=== PATIENT | female | born 1980 | race Caucasian/White ===

== ENCOUNTER 2025-08-09 10:45 | Emergency (ER) | payer BC, SELFPAY ==
--- NOTE | 2025-08-09 10:47 | ECG_ITS ---
[facility] Test Date: 2025-08-09 Pat Name: Chapis Conway Department: Room: Gender: Female [employer]: : 1980 Requested By: Iron Mcclendon Order Number: [id number] Akers MD: Mustapha Barnard M.D. Measurements Intervals [place] Rate: 90 P: 43 NH: 122 QRS: 52 QRSD: 90 T: 9 QT: 368 QTc: 451 Interpretive Statements SINUS RHYTHM NONSPECIFIC ST & T-WAVE ABNORMALITY No previous ECG available for comparison Electronically Signed On 08-09-2025 14:08:52 INSTRUMENTS SALES REPRESENTATIVE by Mustapha Barnadr M.D. [id number]
--- NOTE | 2025-08-09 10:47 | XRR_ITS ---
PROCEDURE INFORMATION: Exam: XR Chest Exam date and time: 08/09/2025 11:05 AM Age: 44 years old Clinical indication: Pain; Chest pressure; Additional info: Cp TECHNIQUE: Imaging protocol: Radiologic exam of the chest. Views: 1 view. COMPARISON: No relevant prior studies available. FINDINGS: Lungs: 11 mm nodular density of the left lung base. No consolidation. Pleural spaces: Unremarkable. No gross pleural effusion. No pneumothorax. Heart/Mediastinum: Unremarkable. No cardiomegaly. Bones/joints: Unremarkable. XR/XR chest 1V portable [id number] IMPRESSION: 11 mm nodular density of the left lung base. Follow-up noncontrast CT chest is recommended.
[2025-08-09 10:59] VITALS: BP 124/63; PULSE 85; RESP 16; TEMP 36.6; O2SAT 100; BMI 31.8
--- NOTE | 2025-08-09 11:15 | W.ED.CHESTPA ---
HPI - Chest Pain General: Chief Complaint: Chest Pain Stated Complaint: chest tightness, tingling in L arm Time Seen by Provider: 08/09/25 11:04 Source: patient Mode of arrival: ambulatory Limitations: no limitations History of Present Illness: 44-year-old female with a history of Mariah's. States she started having some pressure type pain this morning at [facility] with some radiation down her left arm. States pain is currently a 1 out of 10 states its been minor. States she had started estrogen progesterone a little over a month ago has been having some intermittent chest pains. She denies any shortness of breath she denies any fever denies any worse improved factors Related Data Home Medications ?Medication ?Instructions ?Recorded ?Confirmed fluticasone propionate 50 1 spray intranasal DAILY PRN 05/15/23 08/09/25 mcg/actuation nasal allergies spray,suspension (Flonase Allergy Relief) Bi Est/Progest 0.3/40mg See Rx Instructions .Route .COMPLEX 08/09/25 08/09/25 levothyroxine 25 mcg tablet 25 mcg PO QAM 08/09/25 08/09/25 thyroid (pork) 60 mg tablet (Niva 60 mg PO DAILY 08/09/25 08/09/25 Thyroid) Allergies Allergy/AdvReac Type Severity Reaction Status Date / Time Sulfa (Sulfonamide Allergy Unknown ALGY-Rash Verified 08/09/25 11:04 Antibiotics) Review of Systems Card: Reports: chest pain [facility] ED PFSH: Medical History 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 Social History Smoking and tobacco/nicotine status: unknown if used tobacco/nicotine Physical Exam Const: COMMON NORMALS: no acute distress, patient oriented x3 and healthy appearing HENMT: COMMON NORMALS: normocephalic and atraumatic HEAD & SCALP: normocephalic and atraumatic Eye: COMMON NORMALS: Equal, round and reactive pupils present and EOMs intact bilaterally PUPIL: Yes Equal, round and reactive pupils present Neck/C-Spine: COMMON NORMALS: full ROM and supple Chest: COMMONS NORMALS: normal inspection of the chest and normal palpation of entire chest wall Resp: COMMON NORMALS: normal respiratory effort, No retractions, No use of accessory muscles and clear to auscultation bilaterally AUSCULTATION: clear to auscultation bilaterally Cardio: COMMON NORMALS: regular rate, regular rhythm and No murmurs present (Cardio) RATE: regular rate RHYTHM: regular rhythm GI: COMMON NORMALS: Normal to inspection, nondistended, normoactive bowel sounds present, Soft to palpation, non-tender and no masses PALPATION: Yes Soft to palpation Extremity: COMMON NORMALS: normal to inspection and full ROM Neuro: COMMON NORMALS: patient oriented x3, moves all extremities and no focal motor deficits Psych: COMMON NORMALS: mental status grossly normal, Normal thought process present and cooperative THOUGHT PROCESS: Normal thought process present Skin: COMMON NORMALS: no rashes or lesions noted and no wounds GENERAL SKIN EXAM: no rashes or lesions noted Course Vital Signs: Vital signs: Vital Signs Temperature 97.9 F 08/09/25 10:59 Pulse Rate 71 08/09/25 12:33 Respiratory Rate 18 08/09/25 12:33 Blood Pressure 126/78 08/09/25 12:33 Pulse Oximetry 97 08/09/25 12:33 Oxygen Delivery Me thod Room Air 08/09/25 12:33 MDM - Chest Pain Medical Decision Making Patient presents for chest pain. Differential includes aortic dissection, ACS, pulmonary emboli. Patient has no signs of pulmonary emboli chest x-ray here is normal no signs of dissection pain is atypical in nature has minimal risk factors heart score is 1. Her EKG was interpreted by me showed normal sinus rhythm heart rate [address] elevation QRS 90 QTc 416. I interpreted her chest x-ray is normal as well. Did review her labs that showed no acute abnormalities troponins were normal. I feel she is stable for discharge did discuss her results with her she is follow-up her PCP in 2 to 4 days return if worsening she understands agrees to plan. Medical Records I reviewed the patient's medical records. Lab Data I reviewed the patient's lab results. 08/09/25 11:19 08/09/25 11:19 Radiology Impressions Chest X-Ray 08/09/25 10:47 IMPRESSION: 11 mm nodular density of the left lung base. Follow-up noncontrast CT chest is recommended. Laboratory Results WBC 6.30 10^3/uL (3.29-11.43) 08/09/25 11:19 RBC 5.04 10^6/uL (3.85-5.65) 08/09/25 11:19 Hgb 14.00 g/dL (11.27-16.99) 08/09/25 11:19 Hct 42.7 % (36-47) 08/09/25 11:19 MCV 84.7 fl (85-98) L 08/09/25 11:19 MCH 27.8 pg (27-33) 08/09/25 11:19 MCHC 32.8 g/dL (30-55) 08/09/25 11:19 RDW 12.6 % (12.1-15.1) 08/09/25 11:19 Plt Count 272 10^3/cmm (157-399) 08/09/25 11:19 MPV 9.6 fL (7.4-10.4) 08/09/25 11:19 Neut % (Auto) 52.2 % 08/09/25 11:19 Lymph % (Auto) 40.5 % 08/09/25 11:19 Ellis % (Auto) 4.8 % 08/09/25 11:19 Eos % (Auto) 1.6 % 08/09/25 11:19 Baso % (Auto) 0.6 % 08/09/25 11:19 Neut # (Auto) 3.29 10^3/uL (1.8-7.7) 08/09/25 11:19 Lymph # (Auto) 2.6 10^3/uL (0.8-4.8) 08/09/25 11:19 Ellis # (Auto) 0.3 10^3/uL (0.2-0.9) 08/09/25 11:19 Eos # (Auto) 0.1 10^3/uL (0.0-0.8) 08/09/25 11:19 Baso # (Auto) 0.0 10^3/uL (0.0-0.1) 08/09/25 11:19 Nucleated RBC % (auto) 0 % 08/09/25 11:19 Nucleated RBCs # 0.0 /100WBC 08/09/25 11:19 Sodium 136 mmol/L (136-145) 08/09/25 11:19 Potassium 3.7 mmol/L (3.5-5.1) 08/09/25 11:19 Chloride 102 mmol/L (98-107) 08/09/25 11:19 Carbon Dioxide 22 mmol/L (22-29) 08/09/25 11:19 Anion Gap 15.7 (5-19) 08/09/25 11:19 BUN 10 mg/dL (6-20) 08/09/25 11:19 Creatinine 0.6 mg/dL (0.5-0.9) 08/09/25 11:19 GFR Calculation 107.6 mL/min (90-130) 08/09/25 11:19 Glucose 207 mg/dL (65-115) H 08/09/25 11:19 Calculated Osmolality 287 mOsm/kg (285-295) 08/09/25 11:19 Calcium 9.6 mg/dL (8.5-10.5) 08/09/25 11:19 Total Bilirubin 0.6 mg/dL (0.15-1.2) 08/09/25 11:19 AST 39 U/L (0-32) H 08/09/25 11:19 ALT 47 U/L (0-33) H 08/09/25 11:19 Alkaline Phosphatase 99 U/L (35-105) 08/09/25 11:19 Troponin T Baseline 8 ng/L (0-10) 08/09/25 11:19 Troponin T 120 Minute 8.10 ng/L (0-10) 08/09/25 13:32 Delta Troponin T 0.10 ABS# (0-10) 08/09/25 13:32 NT-Pro-B Natriuret Pep < 36 pg/mL (0-125) 08/09/25 11:19 Total Protein 7.4 g/dL (6.6-8.7) 08/09/25 11:19 Albumin 4.8 g/dL (3.5-5.2) 08/09/25 11:19 Globulin 2.6 g/dL (1.3-4.6) 08/09/25 11:19 TSH 0.82 uIU/mL (0.27-4.20) 08/09/25 11:19 All radiology interpretation(s) finalized by discharge EKG Data EKG 1: I personally reviewed and interpreted this EKG as follows: EKG interpretation date: 08/09/25 EKG interpretation time: 10:56 Interpretation: nsr hr [address] elevation qrs 90 [id number] Discharge Plan Discharge Patient Disposition: Home Clinical Impression: Chest pain Condition: Stable Prescriptions: No Action fluticasone propionate [Flonase Allergy Relief] 50 mcg/actuation spray,suspension 1 spray intranasal DAILY PRN (Reason: allergies) Rx Instructions: administer into each nostril thyroid (pork) [Niva Thyroid] 60 mg tablet 60 mg PO DAILY Rx Instructions: along with Levothyroxine 25mcg daily Bi Est/Progest 0.3/40mg See Rx Instructions .ROUTE .COMPLEX Rx Instructions: Apply 1 or 2 clicks to skin twice daily. levothyroxine 25 mcg tablet 25 mcg PO QAM Rx Instructions: along with Niva 60mg daily Discharge Orders: Discharge ED (Routine); Ordered 08/09/25 Ordered By: Iron Mcclendon Referrals: Yumiko Juarez APRN [Primary Care Provider] Discharge Diet: Advance as tolerated Discharge Activity: Resume usual activity Patient Instructions: Chest Pain (ED) Print Language: Portuguese Coding Level of Care Code ED Metal Neutralizer for Chg Fwd Heart Score HEART Score Components History: Slightly Suspicous EKG: Normal Age: 45-64 yrs Risk Factors: No Risk Factors Known Troponin: Baseline Trop <16 ng/L HEART Score RESULT HEART Score: 1
[2025-08-09 11:24] LABS: Hematocrit 42.7 % (36-47); Hemoglobin 14.00 g/dL (11.27-16.99); Mean Corpuscular HGB Conc 32.8 g/dL (30-55); Mean Corpuscular Hemoglobin 27.8 pg (27-33); Mean Corpuscular Volume 84.7 fl (85-98); Nucleated Red Blood Cells % 0 %; Platelet Count 272 10^3/cmm (157-399); Red Blood Count 5.04 10^6/uL (3.85-5.65); White Blood Count 6.30 10^3/uL (3.29-11.43)
[2025-08-09 11:45] LABS: Troponin(5th) Baseline 8 ng/L (0-10)
[2025-08-09 11:53] LABS: Alanine Aminotransferase 47 U/L (0-33); Albumin Level 4.8 g/dL (3.5-5.2); Alkaline Phosphatase 99 U/L (35-105); Aspartate Amino Transferase 39 U/L (0-32); Blood Urea Nitrogen 10 mg/dL (6-20); Calcium 9.6 mg/dL (8.5-10.5); Carbon Dioxide 22 mmol/L (22-29); Chloride 102 mmol/L (98-107); Creatinine Clr Calc Pharmacy 118.5531; Globulin 2.6 g/dL (1.3-4.6); Glucose 207 mg/dL (65-115); NT Pro B Type Natriuretic Pept < 36 pg/mL (0-125); Osmolality Calculated 287 mOsm/kg (285-295); Sodium 136 mmol/L (136-145); Thyroid Stimulating Hormone 0.82 uIU/mL (0.27-4.20); Total Protein 7.4 g/dL (6.6-8.7)
[2025-08-09 11:56] LABS: Anion Gap 15.7 (5-19); Potassium 3.7 mmol/L (3.5-5.1)
[2025-08-09 12:33] VITALS: BP 126/78; PULSE 71; RESP 18; O2SAT 97
--- NOTE | 2025-08-09 12:47 | ECG_ITS ---
[facility] Test Date: 2025-08-09 Pat Name: Chapis Conway Department: Room: Gender: Female Merchandising Director: : 1980 Requested By: Iron Mcclendon Order Number: [id number] Akers MD: Mustapha Barnard M.D. Measurements Intervals [place] Rate: 69 P: 44 [place]: 143 QRS: 34 QRSD: 84 T: 53 QT: 394 QTc: 425 Interpretive Statements SINUS RHYTHM Compared to ECG 08/09/2025 10:56:14 T-wave abnormality no longer present Electronically Signed On 08-09-2025 14:13:34 SPED TEACHER by Mustapha Barnard M.D. [email or web address]
[2025-08-09 14:05] LABS: Troponin 5 2HR 8.10 ng/L (0-10); Troponin 5 2HR Delta 0.10 ABS# (0-10)
== END 2025-08-09 14:42 | disposition home or self-care (01) ==
PROVIDERS: Emergency Provider Emergency Medicine; PCP Nurse Practitioner Family
DX: R07.9 Chest pain, unspecified (principal)
CPT/HCPCS: 36415; 71045; 80053; 83880; 84443; 84484; 85025; 93005; 99285